=== PATIENT | male | born 2000 | race Caucasian/White ===

== ENCOUNTER 2019-12-05 17:33 | Emergency (ER) | payer MEDICAID ==
[~2019-12-05] VITALS: Ht 185.4 cm; Wt 117.9 kg
[2019-12-05 17:35] VITALS: BP 133/84
--- NOTE | 2019-12-05 17:45 | NUR ---
WAIT AT LOBBY.
[2019-12-05] MEDS ORDERED: IBUPROFEN 600 MG TAB PO ONE (18:25)
[2019-12-05] MEDS ORDERED: BACITRACIN OINT 500 UNITS/GM PKT TP ONE (18:25)
--- NOTE | 2019-12-05 18:57 | NUR ---
PT AMBULATED TO CHAIR B, STEADY GAIT.
--- NOTE | 2019-12-05 19:16 | NUR ---
PT L HAND IRRIGATED WITH BETADINE AND NORMAL SALINE
--- NOTE | 2019-12-05 19:45 | NUR ---
Patient discharged with v/s stable. Written and verbal after care instructions given and explained. Patient alert, oriented and verbalized understanding of instructions. Ambulatory with steady gait. All questions addressed prior to discharge. ID band removed. Patient advised to follow up with PMD. Rx of KEFLEX, MOTRIN, BACITRACIN given. Patient educated on indication of medication including possible reaction and side effects. Opportunity to ask questions provided and answered.
== END 2019-12-05 19:45 | disposition home or self-care (01) ==
LOC: MED 17:33
DX: S60.512A Abrasion of left hand, initial encounter (principal); V89.2XXA Person injured in unspecified motor-vehicle accident, traffic, initial encounter; Y93.89 Activity, other specified; Y92.89 Other specified places as the place of occurrence of the external cause; Y99.8 Other external cause status
CPT/HCPCS: 73130; 90471; 90715; 99283

== ENCOUNTER 2021-05-19 21:26 | Emergency (ER) | payer MEDICAID ==
[~2021-05-19] VITALS: Ht 185.4 cm; Wt 139.8 kg
[2021-05-19 22:03] VITALS: BP 122/57
--- NOTE | 2021-05-19 22:11 | NUR ---
PT AMBULATED TO BED 8 WITH STEADY GAIT.
--- NOTE | 2021-05-19 22:27 | NUR ---
X-Ray at bedside.
--- NOTE | 2021-05-19 22:39 | NUR ---
PATIENT REPORTS NUMBNESS TO LEFT MIDDLE FINGER S/P SPLINTER GOING THROUGH HIS HAND AT APPROXIMATELY 1730 TODAY
--- NOTE | 2021-05-19 23:21 | NUR ---
Dr. Walker examining patient.
[2021-05-19] MEDS ORDERED: KETOROLAC 60 MG/2 ML VIAL IM ONE (23:25)
[2021-05-19] MEDS ORDERED: ACET-8386 PO (23:34)
[2021-05-19] MEDS ORDERED: IBUP-2213 PO (23:34)
--- NOTE | 2021-05-19 23:39 | NUR ---
PATIENT CLEARED FOR DISHCARGE AT THIS TIME. TEACHING PROVIDED WITH NO FURTHER COMPLAINTS OR CONCERNS, RX SENT TO PATIENT PHARM.
== END 2021-05-19 23:39 | disposition home or self-care (01) ==
LOC: MED 21:26
DX: S61.442A Puncture wound with foreign body of left hand, initial encounter (principal); W45.8XXA Other foreign body or object entering through skin, initial encounter; Y93.89 Activity, other specified; Y92.89 Other specified places as the place of occurrence of the external cause; Y99.8 Other external cause status
CPT/HCPCS: 73130; 96372; 99283; J1885; Q0092; 96374

== ENCOUNTER 2021-05-26 10:04 | Emergency (ER) | payer MEDICAID ==
[~2021-05-26] VITALS: Ht 185.4 cm; Wt 137.0 kg
[~2021-05-26 10:04] MED LIST: ACET-8386 PO; IBUP-2213 PO
[2021-05-26 10:07] VITALS: BP 149/60
--- NOTE | 2021-05-26 10:19 | NUR ---
PATIENT AMBULATED TO BED 7.
--- NOTE | 2021-05-26 10:29 | NUR ---
pt c/o left hand pain s/p puncture wound 1 week ago. pt states difficulty moving hand and has pain. pending er md arzola.
[2021-05-26] MEDS ORDERED: IBUPROFEN 600 MG TAB PO ONE (10:40)
[2021-05-26] MEDS ORDERED: ALBU117P INH (11:30)
[2021-05-26] MEDS ORDERED: ACET-9527 PO (11:30)
[2021-05-26] MEDS ORDERED: CEPH-588 PO (11:30)
[2021-05-26] MEDS ORDERED: SULF-59 PO (11:30)
[2021-05-26] MEDS ORDERED: IBUP-2213 PO (11:30)
[2021-05-26 11:41] VITALS: BP 115/70
--- NOTE | 2021-05-26 11:41 | NUR ---
pt verbalizes dc instructions no acute distress noted.stable on dc.
== END 2021-05-26 11:41 | disposition home or self-care (01) ==
LOC: MED 10:04
DX: J45.909 Unspecified asthma, uncomplicated (principal); S60.943A Unspecified superficial injury of left middle finger, initial encounter; X58.XXXA Exposure to other specified factors, initial encounter; Y93.89 Activity, other specified; Y92.89 Other specified places as the place of occurrence of the external cause; Y99.8 Other external cause status; Z76.0 Encounter for issue of repeat prescription
CPT/HCPCS: 73130; 99283

== ENCOUNTER 2021-11-21 19:28 | Emergency (ER) | payer MEDICAID, OTHER ==
[~2021-11-21] VITALS: Ht 185.4 cm; Wt 159.8 kg
[~2021-11-21 19:28] MED LIST changes: +ACET-9527 PO; +ALBU117P INH; +CEPH-588 PO; +SULF-59 PO
[2021-11-21 19:49] VITALS: BP 109/71
--- NOTE | 2021-11-21 19:53 | NUR ---
PT AMBULATED TO BED #3
[2021-11-21] MEDS ORDERED: DEXAMETHASONE 10 MG/ML VIAL IM ONE (19:55)
[2021-11-21] MEDS ORDERED: ALBUTEROL 0.083% 2.5 MG/3 ML NEBU INH ONE (19:55)
[2021-11-21] MEDS ORDERED: IPRATROPIUM 0.02% 0.5 MG/2.5 ML NEBU INH ONE (19:55)
--- NOTE | 2021-11-21 19:55 | NUR ---
RT HAS BEEN CALLED.
--- NOTE | 2021-11-21 19:57 | NUR ---
RT AT BEDSIDE
--- NOTE | 2021-11-21 19:58 | NUR ---
ER MD AT BEDSIDE EXAMINING PT
--- NOTE | 2021-11-21 19:58 | NUR ---
21 Y/O MALE BIBS FROM HOME, C/O ASTHMA EXACERBATION X1WK. PT HAS ACTIVITY INDUCED ASTHMA AND NOTICED HIS INHALER HAS NOT BEEDN EFFECTIVE LATELY. NO DIZZINES, CP, FEVER, OR N/V. PT COMPLAINS OF SOB AND COUGH. TACHYPNIC BUT UNLABORED BREATHING, WHEEZES THROUGH LUNG ON INSPIRATION AND EXPIRATION. TACHYCARDIC WITH NO CHEST PAIN. AMBULATED WITHOUT ASSISTANCE. A/OX3, [facility]-15, SPEAKING IN FULL SENTENCES. PT IS SEATED ON BED WITH BED IN LOWEST POSITION AND RAIL UP X1. HX: ASTHMA NKA MED:ALBUTEROL INHALER
[2021-11-21 20:40] VITALS: BP 109/71
--- NOTE | 2021-11-21 20:42 | NUR ---
Patient discharged with v/s stable. Written and verbal after care instructions given and explained. Patient verbalized understanding. Ambulatory with steady gait. All questions addressed prior to discharge. Advised to follow up with PMD. A/OX4, VSS, UNLABORED BREATHING, AMBULATORY, AND CALM DEMEANOR.
[2021-11-21] MEDS ORDERED: ALBU0.0912 INH (21:43)
== END 2021-11-21 20:40 | disposition home or self-care (01) ==
LOC: MED 19:28
DX: J45.909 Unspecified asthma, uncomplicated (principal); R07.9 Chest pain, unspecified; R06.2 Wheezing
CPT/HCPCS: 94640; 96372; 99283; J1100; J7613; J7644